=== PATIENT | male | born 1960 | race Caucasian/White ===

== ENCOUNTER → 2024-05-29 10:04 | Outpatient (REF) | payer SELFPAY | LOC: HWRAD 10:04 | PROVIDERS: ATTENDING PHYSICIAN Family Medicine | DX: Z13.6 Encounter for screening for cardiovascular disorders (principal) | CPT/HCPCS: 75571 ==

== ENCOUNTER 2024-09-21 14:04 | Outpatient (RCR) | payer OTHER, SELFPAY | END 2024-09-21 23:59 | disposition home or self-care (01) | LOC: RPT 14:04 | PROVIDERS: ATTENDING PHYSICIAN Anesthesiology Pain Medicine; FAMILY PHYSICIAN Family Medicine | DX: M54.16 Radiculopathy, lumbar region (principal); Z73.6 Limitation of activities due to disability | CPT/HCPCS: 97010; 97110; 97112; 97140; 97161 ==

== ENCOUNTER 2024-09-30 14:27 | Outpatient (RCR) | payer OTHER, SELFPAY | END 2024-09-30 23:59 | disposition home or self-care (01) | LOC: RPT 14:27 | PROVIDERS: ATTENDING PHYSICIAN Anesthesiology Pain Medicine; FAMILY PHYSICIAN Family Medicine | DX: M54.16 Radiculopathy, lumbar region (principal); Z73.6 Limitation of activities due to disability | CPT/HCPCS: 97110; 97140 ==

== ENCOUNTER 2025-04-02 06:30 | Day surgery (SDC) | payer OTHER, SELFPAY ==
[2025-04-02] VITALS (21 sets, daily range): BP systolic 118–160; BP diastolic 75–109; BMI 28.2
[2025-04-02] MEDS: NSS 245 ML IV (06:59)
[2025-04-02 07:20] LABS: Hematocrit 43.8 % (39.0-52.0); Hemoglobin 15.1 g/dL (13.0-18.0); Mean Corp Hgb Conc. 34.5 g/dL (33.0-37.0); Mean Corpuscular Volume 93.0 fL (80.0-94.0); Platelet Count 244 10^3/uL (130-400); Red Cell Dist. Width 12.0 % (11.5-14.5)
[2025-04-02 07:32] LABS: Blood Urea Nitrogen 12 mg/dl (9-20); Calcium 9.0 mg/dl (8.4-10.2); Carbon Dioxide 25 mmol/L (22-30); Chloride 108 mmol/L (98-107); Estimated Creatinine Clearance 88 ml/min; Glucose 91 mg/dl (70-99); Potassium 4.2 mmol/L (3.5-5.1); Sodium 141 mmol/L (135-145); eGFR > 60.00
[2025-04-02 08:27] LABS: ACT-LR - POC 236 Seconds (116-155)
[2025-04-02 08:44] LABS: ACT-LR - POC 253 Seconds (116-155)
[2025-04-02] MEDS: TYLENOL 650 MG PO (11:22)
--- NOTE | 2025-04-02 16:16 | ITS.CL.CATH ---
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
Cardiac Catheterization
Procedure Report:
LEFT HEART CATHETERIZATION
Date of Procedure: April 02, 2025
Referring: Dr. Canelo Roberts
PROCEDURES:
1. Left heart catheterization with coronary and single-plane left ventriculography
2. Hemodynamic assessment of mid RCA stenosis with a [place] Verrata wire. The IFR serially measured above the ischemic threshold at 0.97, 0.97, and 0.98
INDICATION: This is a 64-year-old gentleman who presented to our office for evaluation of chest burning after meals and symptoms which frequently awaken him in the evening. His symptoms have been present for an extended period of time but may be
worsening over the past several weeks. A CT coronary angiogram and CT coronary calcium score was performed at [facility] and he was noted to have soft plaque in the LAD and he is now referred for coronary angiography.
ACCESS: Right radial artery, 6 Mosotho sheath
HEMODYNAMICS : (mmHg)
AO (s/d) : 124/76, 100
LV (s/d) : 129/10
LVEDP : 23
CORONARY FINDINGS
DOMINANCE: Right
LEFT MAIN: Normal
LEFT ANTERIOR DESCENDING: The LAD arises normally from the left main and runs in the anterior interventricular groove. The ostial LAD has a 20% smooth narrowing. The mid LAD is noted to have a smooth 30% stenosis. There is a large septal cascade
arising from the mid LAD running in the interventricular groove. The true distal LAD terminates in a large distal diagonal branch that bifurcates and appears to supply the apical LAD segment
CIRCUMFLEX: The circumflex is large supplying a small OM1 and terminating in a bifurcating OM 2 and OM 3. Only minor irregularities are noted
RIGHT CORONARY ARTERY: The right coronary artery is a dominant vessel with a 40-50% stenosis in the mid vessel. The PDA is widely patent. The posterolateral branch is small. The 40-50% stenosis was assessed to determine if it was hemodynamically
significant. The IFR serially measured above the ischemic threshold at 0.97, 0.97, and 0.98 as described below
VENTRICULOGRAPHY: Left ventriculography is performed in HOWARD projection. The digital single-plane left ventricular ejection fraction is estimated at 65%. No regional wall motion abnormalities are noted
HEMODYNAMIC ASSESSMENT OF THE RCA WITH A [place] VERRATA WIRE: The origin of the RCA was cannulated with a 6 Fr JR4 guide catheter. Intravenous heparin was administered and the ACT was followed during the procedure. Two hundred micrograms of
intracoronary nitroglycerin was given through the guide catheter. A [place] Verrata wire was advanced to the guide catheter tip and normalized to guide catheter pressure. The Verrata wire was then carefully manipulated across the stenosis in the
mid with the iFR serially measuring above the ischemic threshold at 0.97, 0.97, and 0.98. The Verrata wire was withdrawn to the guide catheter tip where the Pd/Pa measured 0.99 confirming no significant baseline drift.
SEDATION: 38 minutes of procedural sedation was utilized. An independent medical billing associate was present to assist with and help manage the patient's level of consciousness and physiologic status.
RADIATION SUMMARY: Fluoro Time (min): 6.8, Dose (mGy): 394, DAP (Gy.cm2) : 31.2
Closure Device: TR band
CONCLUSIONS
1. Moderate noncritical coronary disease involving the mid RCA with diffuse luminal irregularities noted
2. Preserved LV systolic function
RECOMMENDATIONS
1. Continue aspirin and statin therapy
2. Could consider repeat exercise stress testing for recurring symptoms. However, would consider GI evaluation for postprandial and nocturnal symptoms
Copy to: Dr. Canelo Roberts
== END 2025-04-02 14:18 | disposition home or self-care (01) ==
LOC: CATH 06:30
PROVIDERS: ATTENDING PHYSICIAN Internal Medicine Interventional Cardiology; FAMILY PHYSICIAN Family Medicine; REFERRING PHYSICIAN Internal Medicine Cardiovascular Disease
DX: I25.10 Atherosclerotic heart disease of native coronary artery without angina pectoris (principal); E78.00 Pure hypercholesterolemia, unspecified; Z79.82 Long term (current) use of aspirin; Z79.899 Other long term (current) drug therapy
CPT/HCPCS: 99152; 99153; 93799; 80048; 85027; 85347; 93458; C1769; C1894; Q9967